=== PATIENT | male | born 1985 | race Caucasian/White ===

== ENCOUNTER 2022-02-09 08:15 | Outpatient (CLI) | payer BC, SELFPAY ==
[2022-02-09 13:46] LABS: Albumin* 4.7 g/dL (3.3-5.0)
[2022-02-09 13:47] LABS: Chloride* 103 mmol/L (96-114); Sodium* 138 mmol/L (135-149)
[2022-02-09 13:48] LABS: Potassium* 4.6 mmol/L (3.6-5.1)
[2022-02-09 13:49] LABS: Cholesterol* 228 mg/dL (90-199); Creatinine* 0.7 mg/dL (0.5-1.5); Estimated Glomerular Filt Rate 122 ml/min
[2022-02-09 13:50] LABS: Alanine Aminotransferase* 88 U/L (4-50); Alkaline Phosphatase* 62 U/L (40-150); Aspartate Amino Transferase* 42 U/L (12-35); Bilirubin Total* 0.6 mg/dL (0.1-1.5); Blood Urea Nitrogen* 9 mg/dL (5-24); Calcium* 9.1 mg/dL (8.4-10.6); Carbon Dioxide* 25 mmol/L (20-32); Glucose* 102 mg/dL (60-115); Total Protein* 7.2 g/dL (6.0-8.3); Triglycerides* 285 mg/dL (40-149)
[2022-02-09 13:51] LABS: HDL Cholesterol* 39 mg/dL (>=40); LDL Cholesterol Calculated 132 mg/dL (<100)
== END 2022-02-09 08:16 | disposition home or self-care (01) ==
PROVIDERS: PCP Family Medicine; Visit Provider Family Medicine
DX: R53.83 Other fatigue (principal); Z13.6 Encounter for screening for cardiovascular disorders; R07.89 Other chest pain
CPT/HCPCS: 80053; 80061; 84443